=== PATIENT | female | born 1995 | race Caucasian/White ===

== ENCOUNTER 2022-12-14 22:46 | Emergency (ER) | payer OTHER ==
[~2022-12-14] VITALS: Ht 167.6 cm; Wt 61.2 kg
[2022-12-14 23:32] VITALS: BP_SYST 119
[2022-12-15 04:18] VITALS: BP_SYST 119
== END 2022-12-15 00:42 | disposition home or self-care (01) ==
LOC: SED 22:46
DX: Z00.00 Encounter for general adult medical examination without abnormal findings (principal); Z20.3 Contact with and (suspected) exposure to rabies; Z79.899 Other long term (current) drug therapy
CPT/HCPCS: 99281